=== PATIENT | female | born 1945 | race Caucasian/White ===

== ENCOUNTER 2019-03-15 06:00 | Day surgery (SDC) | payer OTHER ==
[~2019-03-15] VITALS: Ht 154.9 cm; Wt 54.4 kg
[~2019-03-15 06:00] MED LIST: CALCIUM500 M2 PO; METFORMIN HCL1000 M2 PO; NEURONTIN300 MG PO; SYNTHROID88 MCG PO; VITAMIN D32000 UNI1 PO
[2019-03-16] MEDS ORDERED: PERCOCET 5-3251 EACH PO (09:49)
== END 2019-03-16 08:00 | disposition home or self-care (01) ==
LOC: CIR.AMB 06:00 → SURG 14:17 → CIR.AMB 14:17 → O/R 14:17 → SURG 15:15 → O/R 15:15 → CIR.AMB 03-16 08:00 → SURG 03-16 10:12 → O/R 03-16 10:12
DX: C73 Malignant neoplasm of thyroid gland (principal)